=== PATIENT | male | born 1960 | race American Indian/Alaskan Native ===

== ENCOUNTER 2017-02-08 03:18 | Emergency (ER) | payer OTHER ==
--- NOTE | 2017-02-08 04:06 | ED PDOC ---
Arrival/HPI - General Chief Complaint: Lower Extremity Problem/Injury Time Seen by Provider: 02/08/17 03:26 - History of Present Illness Narrative History of Present Illness (Text): 02/08/17 03:56 56yo male with R. foot pain x2 days. Pt denies any trauma or injury. States pain is at the base of his heel. pain worst with ambulation, better with rest. Denies ankle or knee pain, no f/c, no other complaints. Past Medical History - Provider Review Nursing Documentation Reviewed: Yes - Cardiac Hx Cardiac Disorders: No - Pulmonary Hx Respiratory Disorders: No - Neurological Hx Neurological Disorder: No - HEENT Hx HEENT Disorder: No - Renal Hx Renal Disorder: No - Endocrine/Metabolic Hx Diabetes Mellitus Type 2: Yes - Hematological/Oncological Hx Blood Disorders: No - Integumentary Hx Dermatological Disorder: No - Musculoskeletal/Rheumatological Other/Comment: "Crooked Spine" and Shrapnel in the back from as per patient. - Gastrointestinal Hx Gastrointestinal Disorders: No - Genitourinary/Gynecological Hx Genitourinary Disorders: No - Psychiatric Hx Substance Use: No Family/Social History Family/Social History: Unknown Family HX Smoking Status: Light Smoker < 10 Cigarettes Daily Hx Alcohol Use: Yes Frequency of alcohol use: Socially Hx Substance Use: No Allergies/Home Meds Allergies/Adverse Reactions: Allergies No Known Allergies Allergy (Verified 02/08/17 03:26) Review of Systems - Physician Review All systems were reviewed & negative as marked: Yes - Review of Systems Respiratory: absent: SOB, Cough Cardiovascular: absent: Chest Pain, Palpitations, Orthopnea Gastrointestinal: absent: Abdominal Pain, Nausea, Vomiting Musculoskeletal: absent: Back Pain, Neck Pain Skin: absent: Rash, Pruritis Physical Exam Vital Signs Reviewed: Yes Vital Signs Temp Pulse Resp BP Pulse Ox 02/08/17 03:25 98.0 F 96 H 17 130/92 H 98 Temperature: Afebrile Blood Pressure: Normal Pulse: Regular Respiratory Rate: Normal Appearance: Positive for: Well-Appearing Pain Distress: None Mental Status: Positive for: Alert and Oriented X 3 - Systems Exam Lower Extremity: Present: NORMAL PULSES, Normal ROM, Capillary Refill < 2 s, Other (R. knee and ankle with full active and passive ROM. R. foot with no swelling. No pain at base of 5th metatarsal. Tenderness to palpation at base of calcaneous, c/w plantar fasciitis. No tenderness along the Achilles tendon. ). No: CALF TENDERNESS, Cyanosis, Bala's Sign, Swelling Medical Decision Making ED Course and Treatment: 56yo male with foot pain. exam c/w plantar fasciitis pt to be dc'd home with NSAIDS ambulates without difficulty xray shows no acute fractures or dislocations. Interpreted by me. had an extensive d/w pt that although xrays are negative for any acute bony abnormality, it is still very important to fu with pmd and ortho specialist for further w/u and testing such as MRI to r/o any ligamentous/tendenous/meniscal injury. Pt verbalized full understanding of above discussion. Pt states he understands to return to the ER right away for new or worsening symptoms or for inability to f/u with PMD or specialist as instructed. Patient states that he fully agrees with and understands discharge instructions. States that he agrees with the plan and disposition. Verbalized and repeated discharge instructions and plan. I have given the patient opportunity to ask any additional questions. - RAD Interpretation Radiology Orders: 02/08/17 03:54 FOOT RIGHT 3 VIEWS ROUTINE [RAD] Stat - Medication Orders Current Medication Orders: Discontinued Medications Ketorolac Tromethamine (Toradol) 30 mg IM STAT STA Stop: 02/08/17 03:57 Last Admin: 02/08/17 04:08 Dose: 30 mg Ketorolac Tromethamine (Toradol) Confirm Administered Dose 30 mg .ROUTE .STK- MED ONE Stop: 02/08/17 04:06 Last Admin: 02/08/17 04:09 Dose: Disposition/Present on Arrival - Present on Arrival Any Indicators Present on Arrival: No History of DVT/PE: No History of Uncontrolled Diabetes: No Urinary Catheter: No History of Decub. Ulcer: No History Surgical Site Infection Following: None - Disposition Have Diagnosis and Disposition been Completed?: Yes Diagnosis: Foot pain Disposition: HOME/ ROUTINE Disposition Time: 03:54 Patient Plan: Discharge Patient Problems: Current Active Problems Problem Status Onset Foot pain Acute Condition: GOOD Discharge Instructions (ExitCare): Arthralgia (ED), Plantar Fasciitis (ED) Additional Instructions: PLEASE RETURN TO THE EMERGENCY DEPARTMENT FOR NEW OR WORSENING SYMPTOMS. RETURN RIGHT AWAY IF YOU CANNOT FOLLOW UP WITH YOUR PRIMARY CARE DOCTOR, CLINIC, OR SPECIALIST IN 1-2 DAYS. Prescriptions: Famotidine [Pepcid] 20 mg PO BID #14 tab Ibuprofen [Motrin Tab] 800 mg PO BID #12 tab Referrals: Trell Whitehead DPM [Staff Provider] - Follow up with primary
--- NOTE | 2017-02-08 09:51 | RAD ---
PROCEDURE: Right Foot Radiographs. HISTORY: pain COMPARISON: None. FINDINGS: BONES: Postoperative osteotomy changes distal right 1st metatarsal with 2 in situ fixation screws. Hardware appears intact. . Note made of somewhat rectangular-shaped lucency surrounding the proximal fixation screw which could be postoperative sequela however the possibility of loosening or infection cannot be excluded. . Tiny bony densities within the surrounding soft tissues likely postoperative as well clinical correlation recommended. 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 IMPRESSION: Postoperative osteotomy changes distal right 1st metatarsal with 2 in situ fixation screws. Hardware appears intact. . Note made of somewhat rectangular-shaped lucency surrounding the proximal fixation screw which could be postoperative sequela however the possibility of loosening or infection cannot be excluded. . Tiny bony densities within the surrounding soft tissues likely postoperative as well clinical correlation recommended. Followup by MRI could be performed clinically indicated. Note this report was placed in PA review folder followup
[2017-02-08 12:31] VITALS: BP 135/78; PULSE 85; RESP 16; TEMP 98; O2SAT 98; BMI 29.0
--- NOTE | 2017-02-12 15:02 | ED PDOC ---
ED Additional Note - Physician Additional Note Physician Additional Note: left message to call back regarding Xray findings;
== END 2017-02-08 05:37 | disposition home or self-care (01) ==
LOC: ED 03:18
DX: M79.671 Pain in right foot (principal)
CPT/HCPCS: 73630; 96372; 99284; J1885